=== PATIENT | female | born 1995 | race Caucasian/White ===

== ENCOUNTER 2016-09-30 23:14 | Emergency (ER) | payer MEDICAID ==
[~2016-09-30] VITALS: Ht 165.1 cm; Wt 93.0 kg
[2016-10-01] MEDS ORDERED: FAMOTIDINE 20MG/2ML VIAL IV STA (02:52)
[2016-10-01] MEDS ORDERED: SODIUM CHLORIDE 0.9% 1,000 ML IV ONE (02:52)
[2016-10-01 03:12] LABS: HEMATOCRIT. 38.8 % (36.0-48.0); MEAN CORPUSCULAR HEMOGLOBIN 27.7 pg (28.0-32.0); MEAN CORPUSCULAR VOLUME 82.6 fL (81.0-99.0); MEAN PLATELET VOLUME 6.7 fl (7.4-10.4); PLATELET 317 x1000/uL (130-400); RED BLOOD CELL COUNT 4.69 mill/uL (4.2-5.4); RED CELL DISTRIBUTION WIDTH 15.3 % (11.6-14.6)
[2016-10-01 03:12] LABS: CLARITY URINE CLEAR (CLEAR); COLOR URINE YELLOW (YELLOW); GLUCOSE URINE NEGATIVE (NEGATIVE); KETONES URINE TRACE (NEGATIVE); LEUKOCYTE ESTERASE URINE 1+ (NEGATIVE); NITRITE URINE NEGATIVE (NEGATIVE); OCCULT BLOOD URINE NEGATIVE (NEGATIVE); PH URINE 5.5 (4.5-8.0); PROTEIN URINE NEGATIVE (NEGATIVE); SPECIFIC GRAVITY URINE 1.024 (1.005-1.030); UROBILINOGEN URINE 0.2 E.U./dL (0.2-1.0)
[2016-10-01 03:18] LABS: CARBON DIOXIDE 28 mEq/L (21-32); CHLORIDE 105 mEq/L (98-107); HCG SCREEN NEGATIVE
[2016-10-01 04:00] LABS: PLATELET ESTIMATE NORMAL
[2016-10-01 04:36] VITALS: BP 119/60
[2016-10-01] MEDS ORDERED: ONDANSETRON 4MG ODT PO ONE (05:15)
== END 2016-10-01 05:49 | disposition home or self-care (01) ==
LOC: ER 23:14
DX: N39.0 Urinary tract infection, site not specified (principal); D72.829 Elevated white blood cell count, unspecified; F10.10 Alcohol abuse, uncomplicated; Y90.9 Presence of alcohol in blood, level not specified
CPT/HCPCS: 36415; 80053; 81001; 83690; 84703; 85025; 96361; 96374; 99285; J3490; J7030; Q0162; Z7610

== ENCOUNTER 2020-10-12 19:54 | Emergency (ER) | payer MEDICAID ==
[~2020-10-12] VITALS: Ht 175.3 cm; Wt 105.6 kg
[2020-10-12] MEDS ORDERED: AZIT250T12 MT (23:45)
[2020-10-12] MEDS ORDERED: GUAI600T26 MT (23:45)
[2020-10-12] MEDS ORDERED: ACET-2708 MT (23:45)
[2020-10-12 23:59] VITALS: BP 119/74
== END 2020-10-13 00:09 | disposition home or self-care (01) ==
LOC: ER 19:54
DX: J18.9 Pneumonia, unspecified organism (principal); F12.10 Cannabis abuse, uncomplicated
CPT/HCPCS: 71045; 99283